=== PATIENT | female | born 2000 | race Caucasian/White ===

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

== ENCOUNTER 2021-08-01 12:42 | Emergency (ER) | payer MEDICAID ==
[~2021-08-01] VITALS: Ht 152.4 cm; Wt 63.6 kg
[2021-08-01 12:48] VITALS: BP 108/70
--- NOTE | 2021-08-01 13:20 | NUR ---
pronouns he/him
[2021-08-01] MEDS ORDERED: LIDOcaine 1% 30ml preserv. free vial IJ ONE (13:50)
[2021-08-01] MEDS ORDERED: TETanus/Pertussis (Acell)/Diphther VAC/PF (Tdap-Adult) 0.5ml syringe IMVAC ONE (14:25)
--- NOTE | 2021-08-01 16:35 | NUR ---
PT LEFT W/O DC PAPERS AND TETANUS SHOT. MD NOTIFIED. CALLED PT AND EXPLAINED THE RECOMMENDATIONS OF THE MEDICATION. PT STATED HE WILL JUST GO TO HIS PRIMARY MD AND DOES NOT WANT TO RETURN. PT VERBALIZED HE UNDERSTANDS THE RISKS OF NOT RECIEVING TETANUS SHOT.
== END 2021-08-01 17:16 | disposition home or self-care (01) ==
LOC: ER 12:42
DX: S61.215A Laceration without foreign body of left ring finger without damage to nail, initial encounter (principal); W26.0XXA Contact with knife, initial encounter; Y93.89 Activity, other specified; Y92.89 Other specified places as the place of occurrence of the external cause; Y99.8 Other external cause status
CPT/HCPCS: 64450; 99284

== ENCOUNTER 2021-09-23 20:21 | Emergency (ER) | payer MEDICAID ==
[~2021-09-23] VITALS: Ht 152.4 cm; Wt 63.6 kg
[2021-09-23] MEDS ORDERED: normal saline 1000ML IV soln IVB ONE (21:30)
[2021-09-23] MEDS ORDERED: ondansetron/PF 4mg/2ml inj IV ONE (21:30)
--- NOTE | 2021-09-23 21:30 | NUR ---
Pt presents to the ed with c/o abd pain on intensity of 7/10 and vomiting times one day; the pt states she occasionally gets lose stools and has not been able to keep much down; she denies covid exposure, or other related symptoms; the pt denies sorethroat, fever/chills, sob, or cp; the pt states she does not want to have blood work done, and prefers to have meds admin as she has a hx of syncopal episodes with prior blood withdrawal.
--- NOTE | 2021-09-23 21:55 | NUR ---
The pt also states she's currently undergoing a sex change ( was born a female); provider at .
--- NOTE | 2021-09-23 22:00 | NUR ---
Provider states the "pt is fine." Orders received from ProviderLYNNE who states the pt will need blood work prior to treatment; the pt was informed of the provider's stipulations and room availability; the pt states they prefer to be in a room in order to have any lab work done, and to receive treatment due to fear of complications from any lab procedures, and will wait for a room assignemnt.
--- NOTE | 2021-09-23 22:58 | NUR ---
Pt assigned a room and left the RAP area with a tech to be roomed inside the ED
[2021-09-23 23:29] LABS: BASOPHILS % (AUTO) 0.1 % (0-1); EOSINOPHILS % (AUTO) 0 % (0-6); HEMATOCRIT 42.7 % (35.0-45.0); HEMOGLOBIN 14.7 g/dl (12.0-16.0); LYMPHOCYTES # (AUTO) 0.4 X10'3 (1.1-4.8); LYMPHOCYTES % (AUTO) 3.7 % (21-51); MEAN CORPUSCULAR HGB CONC 34.5 g/dL (33.0-36.5); MEAN CORPUSCULAR VOLUME 98.5 FL (78-98); MEAN PLATELET VOLUME 9.3 FL (7.4-10.4); MONOCYTES # (AUTO) 0.4 X10'3 (0-0.9); MONOCYTES % (AUTO) 4.5 % (2-12); NEUTROPHILS # (AUTO) 8.9 X10'3 (1.8-7.7); NEUTROPHILS % (AUTO) 91.7 % (42-75); PLATELET COUNT 188 X10'3 (140-440); RED BLOOD COUNT 4.34 X10'6 (4.20-5.60); RED CELL DISTRIBUTION WIDTH 13.4 % (11.5-14.5); WHITE BLOOD COUNT 9.8 X10'3 (4.5-11.0)
[2021-09-23 23:43] LABS: ALANINE AMINOTRANSFERASE 15 U/L (12-78); ALBUMIN 4.2 G/DL (3.4-5.0); ALKALINE PHOSPHATASE 81 IU/L (20-180); ANION GAP 13 (8-16); ASPARTATE AMINO TRANSFERASE 12 U/L (10-37); BILIRUBIN,TOTAL 1.3 MG/DL (0.1-1.0); BLOOD UREA NITROGEN 17 MG/DL (7-18); BUN/CREATININE RATIO 18.9 (6.6-38.0); CALCIUM 9.1 MG/DL (8.5-10.1); CHLORIDE 101 MMOL/L (99-107); GLUCOSE 105 MG/DL (70-104); POTASSIUM 3.7 MMOL/L (3.5-5.1); SODIUM 139 MMOL/L (135-145); TOTAL CARBON DIOXIDE 24.6 MMOL/L (24-32); TOTAL PROTEIN 8.3 G/DL (6.4-8.2); eGFR 80 ML/MIN
[2021-09-23] MEDS ORDERED: ONDA4TAB12 PO (23:44)
[2021-09-23 23:56] LABS: URINE HCG NEGATIVE (NEG)
[2021-09-24 00:03] LABS: CLARITY,URINE SLIGHTLY CLOUDY (Clear); COLOR,URINE YELLOW (Yellow); GLUCOSE, URINE NEGATIVE (Neg); KETONES,URINE 15 mg/dl (Neg); LEUKOCYTE ESTERASE ,URINE SMALL (Neg); NITRITES, URINE NEGATIVE (Neg); OCCULT BLOOD,URINE NEGATIVE (Neg); PROTEIN,URINE 30 mg/dl (Neg); UA COLLECTION TYPE CLN CATCH MIDSTREAM; UROBILINOGEN,URINE 0.2 E.U/dL (0.2-1.0)
[2021-09-24 00:10] LABS: BACTERIA,URINE 1+ /HPF (Neg); MUCUS STRANDS MODERATE /LPF (Neg); SQUAMOUS EPITHELIAL CELL,UR FEW /LPF (FEW); TRANSITIONAL EPI CELLS,URINE FEW /HPF; WBC CLUMPS,URINE FEW /HPF (NEGATIVE); WBC,URINE 30-50 /HPF (0-4)
[2021-09-24] MEDS ORDERED: NITR100C6 PO (00:11)
[2021-09-24 00:23] VITALS: BP 104/61
== END 2021-09-24 00:26 | disposition home or self-care (01) ==
LOC: ER 20:22
DX: N30.00 Acute cystitis without hematuria (principal); F12.10 Cannabis abuse, uncomplicated; D64.9 Anemia, unspecified; Z79.899 Other long term (current) drug therapy; Z20.822 Contact with and (suspected) exposure to COVID-19
CPT/HCPCS: 36415; 80053; 81001; 81025; 85025; 87088; 87635; 96361; 96374; 99283; C9803; J2405; J7030; 81003

== ENCOUNTER 2021-12-03 21:31 | Emergency (ER) | payer MEDICAID ==
[~2021-12-03] VITALS: Ht 154.9 cm; Wt 63.6 kg
[~2021-12-03 21:31] MED LIST changes: +NITR100C6 PO; +ONDA4TAB12 PO
[2021-12-03 21:34] VITALS: BP 109/62
[2021-12-03] MEDS ORDERED: dexamethasone 4mg tablet PO ONE (22:15)
[2021-12-03] MEDS ORDERED: PRED20TA PO (23:18)
== END 2021-12-03 23:37 | disposition home or self-care (01) ==
LOC: ER 21:32
DX: J20.9 Acute bronchitis, unspecified (principal); F12.10 Cannabis abuse, uncomplicated; D64.9 Anemia, unspecified
CPT/HCPCS: 87081; 87880; 99283

== ENCOUNTER 2021-12-27 18:33 | Emergency (ER) | payer MEDICAID ==
[~2021-12-27] VITALS: Ht 154.9 cm; Wt 63.6 kg
[2021-12-27] MEDS ORDERED: dexamethasone 4mg tablet PO ONE (19:40)
[2021-12-27 20:22] VITALS: BP 103/61
== END 2021-12-27 20:14 | disposition home or self-care (01) ==
LOC: ER 18:35
DX: U07.1 COVID-19 (principal); J20.9 Acute bronchitis, unspecified; D64.9 Anemia, unspecified; F12.10 Cannabis abuse, uncomplicated; Z79.899 Other long term (current) drug therapy
CPT/HCPCS: 99283